=== PATIENT | male | born 1980 | race Caucasian/White ===

== ENCOUNTER 2020-03-14 15:59 | Emergency (ER) | payer BC ==
[~2020-03-14] VITALS: Ht 185.4 cm; Wt 112.5 kg
[~2020-03-14 15:59] MED LIST: COL100 PO; NORCO1 TA2 PO
[2020-03-14 17:18] LABS: microscopic required? YES; urine erythrocyte TRACE (NEGATIVE)
[2020-03-14 18:11] VITALS: BP 130/80
== END 2020-03-14 18:48 | disposition home or self-care (01) ==
LOC: ED 15:59
PROVIDERS: Specialist
DX: N45.1 Epididymitis (principal); I86.1 Scrotal varices; N43.3 Hydrocele, unspecified; Z98.890 Other specified postprocedural states
CPT/HCPCS: Q0092